=== PATIENT | male | born 1995 | race African-American/Black ===

== ENCOUNTER 2017-05-03 16:35 | Inpatient (IN) | payer OTHER ==
[~2017-05-03] VITALS: Ht 172.7 cm; Wt 67.6 kg
[2017-05-03 17:27] LABS: BASOPHIL % 0.4 % (0-2); PLATELET COUNT 239 x10^3mcL (130-400); RED CELL DISTRIBUTION WIDTH 15.1 % (11.5-14.5)
[2017-05-03 17:48] LABS: CALCIUM 9.7 mg/dL (8.5-10.1); CARBON DIOXIDE 18.3 mmol/L (21-32); CHLORIDE SERUM 97 mmol/L (98-107); CREATININE SERUM 1.3 mg/dL (0.7-1.3); GFR1 > 60 mL/min; GLUCOSE SERUM 104 mg/dL (74-106); POTASSIUM SERUM 4.2 mmol/L (3.5-5.1); SODIUM SERUM 133 mmol/L (136-145)
[2017-05-03 17:52] LABS: ALBUMIN 4.5 g/dL (3.4-5.0); ALKALINE PHOSPHATASE 74 U/L (46-116); ALT/SGPT 24 U/L (16-63); AST/SGOT 25 U/L (15-37); BILIRUBIN TOTAL 0.62 mg/dL (0.20-1.00)
[2017-05-03 17:53] LABS: TOTAL PROTEIN, SERUM 8.9 g/dL (6.4-8.2)
[2017-05-03 18:16] LABS: AMPHETAMINE QUAL UR NONE DETECTED (NEG <=1000)
[2017-05-03 20:45] LABS: CHOLESTEROL/HDL RATIO 2.4; MAGNESIUM 2.7 mg/dL (1.8-2.4); PHOSPHOROUS 3.5 mg/dL (2.5-4.9)
[2017-05-03 20:55] LABS: T3 TOTAL 0.92 ng/mL
[2017-05-03 20:57] VITALS: BP 122/61
[2017-05-03 20:57] LABS: FREE T4 1.2 ng/dL (0.76-1.46); FREE THYROXINE INDEX 3.4 ug/dL (1.4-4.5); T4(THYROXINE) 9.3 ug/dL (4.7-13.3)
[2017-05-03 21:09] LABS: UA SPECIFIC GRAVITY >=1.030 (1.005-1.035); microscopic required? YES; urine erythrocyte 2+ (NEGATIVE)
[2017-05-04 06:17] VITALS: BP 117/52
[2017-05-04 09:01] VITALS: BP 112/56
[2017-05-04 13:15] VITALS: BP 118/57
[2017-05-04 16:40] VITALS: BP 124/74
[2017-05-04 20:57] VITALS: BP 117/55
[2017-05-05 05:19] VITALS: BP 111/66
[2017-05-05 06:36] LABS: BASOPHIL % 0.6 % (0-2); CALCIUM 9.1 mg/dL (8.5-10.1); CARBON DIOXIDE 26.4 mmol/L (21-32); CHLORIDE SERUM 105 mmol/L (98-107); GFR1 > 60 mL/min; GLUCOSE SERUM 87 mg/dL (74-106); MAGNESIUM 1.8 mg/dL (1.8-2.4); PHOSPHOROUS 3.9 mg/dL (2.5-4.9); PLATELET COUNT 208 x10^3mcL (130-400); POTASSIUM SERUM 3.9 mmol/L (3.5-5.1); SODIUM SERUM 140 mmol/L (136-145)
[2017-05-05 06:48] LABS: RED CELL DISTRIBUTION WIDTH 15.2 % (11.5-14.5)
[2017-05-05 09:28] VITALS: BP 124/58
[2017-05-05 11:46] VITALS: Ht 172.7 cm; Wt 67.6 kg
[2017-05-05 14:49] VITALS: BP 124/58
== END 2017-05-05 16:31 | disposition home or self-care (01) | DRG 53 ==
LOC: ED 16:35 → DU 18:44
PROVIDERS: Emergency Medicine; ADMIT Family Medicine
DX: G40.909 Epilepsy, unspecified, not intractable, without status epilepticus (principal); N17.0 Acute kidney failure with tubular necrosis; G92 Toxic encephalopathy; E87.1 Hypo-osmolality and hyponatremia; E87.8 Other disorders of electrolyte and fluid balance, not elsewhere classified; E83.41 Hypermagnesemia; E78.2 Mixed hyperlipidemia; F12.188 Cannabis abuse with other cannabis-induced disorder; F10.10 Alcohol abuse, uncomplicated; F41.9 Anxiety disorder, unspecified; G40.409 Other generalized epilepsy and epileptic syndromes, not intractable, without status epilepticus; Y90.9 Presence of alcohol in blood, level not specified; Z53.29 Procedure and treatment not carried out because of patient's decision for other reasons; G90.8 Other disorders of autonomic nervous system; R31.9 Hematuria, unspecified
CPT/HCPCS: 83880; 84439; G0480; J0696; J2060; J2405; J7030

== ENCOUNTER 2017-05-20 09:42 | Emergency (ER) | payer OTHER ==
[~2017-05-20] VITALS: Ht 167.6 cm; Wt 72.6 kg
[2017-05-20 10:53] LABS: BASOPHIL % 0.4 % (0-2); PLATELET COUNT 228 x10^3mcL (130-400); RED CELL DISTRIBUTION WIDTH 14.4 % (11.5-14.5)
[2017-05-20 11:14] LABS: CALCIUM 9.1 mg/dL (8.5-10.1); CHLORIDE SERUM 102 mmol/L (98-107); CREATININE SERUM 1.4 mg/dL (0.7-1.3); GFR1 > 60 mL/min; GLUCOSE SERUM 186 mg/dL (74-106); POTASSIUM SERUM 4.3 mmol/L (3.5-5.1); SODIUM SERUM 139 mmol/L (136-145)
[2017-05-20 11:16] LABS: ALBUMIN 4.2 g/dL (3.4-5.0); LIPASE 77 IU/L (73-393)
[2017-05-20 11:50] LABS: ALKALINE PHOSPHATASE 68 U/L (46-116); ALT/SGPT 22 U/L (16-63); AST/SGOT 21 U/L (15-37); BILIRUBIN TOTAL 0.4 mg/dL (0.20-1.00); TOTAL PROTEIN, SERUM 8.1 g/dL (6.4-8.2)
[2017-05-20 13:18] VITALS: BP 123/62
== END 2017-05-20 13:19 | disposition home or self-care (01) ==
LOC: ED 09:42
PROVIDERS: Emergency Medicine
DX: F12.10 Cannabis abuse, uncomplicated (principal); R11.10 Vomiting, unspecified
CPT/HCPCS: 83880; G0480; J2060; J2405; J2550; J3490; J7030